=== PATIENT | female | born 1960 | race African-American/Black ===

== ENCOUNTER → 2017-01-28 | Outpatient (CLI) | payer OTHER ==
--- NOTE | 2017-01-28 17:26 | WOMENS IMAGING REPORT ---
EXAM DESCRIPTION: 3D DX MAMMO BILAT; U/S BREAST UNILATERAL, COMPL COMPLETED DATE/TIME: 01/28/2017 2:56 pm; 01/28/2017 2:03 pm REASON FOR STUDY: ROUTINE SCREENING; Z12.31; LUMP/PAIN L BREAST N63, N64.4 N63 UNSPECIFIED LUMP IN BREAST COMPARISON: Multiple mammograms since 2008 TECHNIQUE: Standard craniocaudal and mediolateral oblique views of each breast recorded using digita l acquisition. Additional "push-back" craniocaudal and mediolateral oblique images acquired. [facility] compression mammograms left breast implant displaced in the CC and MLO orientations, 90 left br east mediolateral view implant displaced, exaggerated craniocaudad view implant displaced. Left breast ultrasound was also performed. LIMITATIONS: None. FINDINGS: IMPLANTS: Bilateral subpectoral implants. RIGHT BREAST MASSES: No suspicious masses. CALCIFICATIONS: No new or suspicious calcifications. ARCHITECTURAL DISTORTION: None. DEVELOPING DENSITY: None. ASYMMETRY: None noted. OTHER: No other significant findings. LEFT BREAST MASSES: In the upper outer quadrant, 10 cm from the nipple a mammographic nodule is present with slig htly lobular borders measuring 10 to 11 mm in size. This correlates with the area of patient's palpa ble abnormality. There are 2 smaller adjacent nodules which are benign intramammary lymph nodes. CALCIFICATIONS: No new or suspicious calcifications. ARCHITECTURAL DISTORTION: None. DEVELOPING DENSITY: None. ASYMMETRY: None noted. OTHER: No other significant finding. Read with the assistance of CAD: .[facility] - R2 Cenova Version 1.3 .[facility] - R2 Cenova Version 1.3 .[facility] - R2 Cenova Version 2.4 .[facility] - R2 Cenova Version 2.4 .[facility] - R2 Case Management Associate Version 9.2 Left breast ultrasound: In the area of palpable abnormality indicated by the patient, an irregularly-shaped solid nodule with ill-defined borders is present, 10 x 10 x 10 mm in size. Internal color flow. This is suspicious f or malignancy. Ultrasound-guided core biopsy, post biopsy clip placement, and follow-up post biopsy mammogram recommended. There are 2 adjacent small benign-appearing intramammary lymph nodes, 6 mm and 5 mm in size. IMPRESSION: Palpable abnormality left breast correlates with a small solid nodule with internal colo r flow suspicious for malignancy. Ultrasound-guided core biopsy, post biopsy clip placement and post biopsy two-view mammogram recommended for followup. BREAST DENSITY: b. There are scattered areas of fibroglandular density. BIRAD: 4 Suspicious. Biopsy should be considered. RECOMMENDATION: RECOMMENDED FOLLOW UP: Left breast ultrasound-guided core biopsy, post biopsy clip p lacroger with follow-up two-view mammogram SPECIFIC INTERVENTION/IMAGING/CONSULTATION RECOMMENDED:As above COMMUNICATION:These findings were discussed with the patient, she understands she requires a biopsy. Report was also called to IFTIKHAR Soto, 1145 hours 01/28/2017 COMMENT: The patient has been notified of the results by letter per SA requirements. Additional no tification policies are in place for contacting patient with suspicious or incomplete findings. Quality ID #[id number]: The [employer] recommends an annual screening mammogram for women aged 40 years or over. This facility utilizes a reminder system to ensure that all patients receive reminder letters, and/or direct phone calls for appointments. This includes reminders for routine scr eening mammograms, diagnostic mammograms, or other Breast Imaging Interventions when appropriate. Th is patient will be placed in the appropriate reminder system. The [employer] (ACR) has developed recommendations for screening MRI of the breast s in certain patient populations, to be used in conjunction with mammography. Breast MRI surveillanc e may be appropriate for women with more than 20% lifetime risk of developing breast cancer as deter mined by genetic testing, significant family history of the disease, or history of mantle radiation f or Hodgkins Disease. ACR Practice Guidelines 2008. TECHNICAL DOCUMENTATION: FINDING NUMBER: (1) ASSESSMENT: (1) JOB ID: [id number] [employer]- All Rights Reserved
--- NOTE | 2017-01-28 17:26 | WOMENS IMAGING REPORT ---
EXAM DESCRIPTION: 3D DX MAMMO BILAT; U/S BREAST UNILATERAL, COMPL COMPLETED DATE/TIME: 01/28/2017 2:56 pm; 01/28/2017 2:03 pm REASON FOR STUDY: ROUTINE SCREENING; Z12.31; LUMP/PAIN L BREAST N63, N64.4 N63 UNSPECIFIED LUMP IN BREAST COMPARISON: Multiple mammograms since 2008 TECHNIQUE: Standard craniocaudal and mediolateral oblique views of each breast recorded using digita l acquisition. Additional "push-back" craniocaudal and mediolateral oblique images acquired. [facility] compression mammograms left breast implant displaced in the CC and MLO orientations, 90 left br east mediolateral view implant displaced, exaggerated craniocaudad view implant displaced. Left breast ultrasound was also performed. LIMITATIONS: None. FINDINGS: IMPLANTS: Bilateral subpectoral implants. RIGHT BREAST MASSES: No suspicious masses. CALCIFICATIONS: No new or suspicious calcifications. ARCHITECTURAL DISTORTION: None. DEVELOPING DENSITY: None. ASYMMETRY: None noted. OTHER: No other significant findings. LEFT BREAST MASSES: In the upper outer quadrant, 10 cm from the nipple a mammographic nodule is present with slig htly lobular borders measuring 10 to 11 mm in size. This correlates with the area of patient's palpa ble abnormality. There are 2 smaller adjacent nodules which are benign intramammary lymph nodes. CALCIFICATIONS: No new or suspicious calcifications. ARCHITECTURAL DISTORTION: None. DEVELOPING DENSITY: None. ASYMMETRY: None noted. OTHER: No other significant finding. Read with the assistance of CAD: .[facility] - R2 Cenova Version 1.3 .[facility] - R2 Cenova Version 1.3 .[facility] - R2 Cenova Version 2.4 .[facility] - R2 Cenova Version 2.4 .[facility] - R2 Automation Technician Version 9.2 Left breast ultrasound: In the area of palpable abnormality indicated by the patient, an irregularly-shaped solid nodule with ill-defined borders is present, 10 x 10 x 10 mm in size. Internal color flow. This is suspicious f or malignancy. Ultrasound-guided core biopsy, post biopsy clip placement, and follow-up post biopsy mammogram recommended. There are 2 adjacent small benign-appearing intramammary lymph nodes, 6 mm and 5 mm in size. IMPRESSION: Palpable abnormality left breast correlates with a small solid nodule with internal colo r flow suspicious for malignancy. Ultrasound-guided core biopsy, post biopsy clip placement and post biopsy two-view mammogram recommended for followup. BREAST DENSITY: b. There are scattered areas of fibroglandular density. BIRAD: 4 Suspicious. Biopsy should be considered. RECOMMENDATION: RECOMMENDED FOLLOW UP: Left breast ultrasound-guided core biopsy, post biopsy clip p lacroger with follow-up two-view mammogram SPECIFIC INTERVENTION/IMAGING/CONSULTATION RECOMMENDED:As above COMMUNICATION:These findings were discussed with the patient, she understands she requires a biopsy. Report was also called to IFTIKHAR Soto, 1145 hours 01/28/2017 COMMENT: The patient has been notified of the results by letter per SA requirements. Additional no tification policies are in place for contacting patient with suspicious or incomplete findings. Quality ID #[id number]: The [employer] recommends an annual screening mammogram for women aged 40 years or over. This facility utilizes a reminder system to ensure that all patients receive reminder letters, and/or direct phone calls for appointments. This includes reminders for routine scr eening mammograms, diagnostic mammograms, or other Breast Imaging Interventions when appropriate. Th is patient will be placed in the appropriate reminder system. The [employer] (ACR) has developed recommendations for screening MRI of the breast s in certain patient populations, to be used in conjunction with mammography. Breast MRI surveillanc e may be appropriate for women with more than 20% lifetime risk of developing breast cancer as deter mined by genetic testing, significant family history of the disease, or history of mantle radiation f or Hodgkins Disease. ACR Practice Guidelines 2008. TECHNICAL DOCUMENTATION: FINDING NUMBER: (1) ASSESSMENT: (1) JOB ID: [id number] [employer]- All Rights Reserved
== END ==
LOC: WI 09:56
PROVIDERS: ATTEND Nurse Practitioner Primary Care
DX: N63 Unspecified lump in breast (principal); N64.4 Mastodynia
CPT/HCPCS: 76641; G0279; G0204; 77062; 77066

== ENCOUNTER → 2017-02-12 | Day surgery (SDC) | payer OTHER ==
[~2017-02-12] MED LIST: LIDOCAINE 2% INJ (20 MG/ML) 20 ML MDV ONE
--- NOTE | 2017-02-18 16:20 | WOMENS IMAGING REPORT ---
EXAM DESCRIPTION: U/S BREAST BX; LEFT DIG DX MAMMO NO CHG COMPLETED DATE/TIME: 02/12/2017 2:12 pm; 02/12/2017 3:17 pm REASON FOR STUDY: L BREAST- LUMP; N63; N63 S/P US LEFT BREAST BX FOR CLIP PLACEMENT N63 UNSPECIFIED LUMP IN BREAST N64.4 MASTODYNIA COMPARISON: None. TECHNIQUE: The procedure was discussed with the patient and the patient agreed to proceed. The patient was scanned and the area of interest in the 1 o'clock position of the left breast was loc alized. This correlates with the area of concern on prior imaging studies. This area was targeted fo r ultrasound-guided core biopsy. After sterile skin prep and 5 mL local lidocaine 1% for skin and deep tissue anesthesia, a 14 gauge c ore biopsy needle was used to obtain several cores of tissue from the lesion. Under ultrasound xochilt nce, a ribbon clip was placed in the areas sampled. There were no immediate post-procedure complicat ions. MAMMOGRAM: Post-procedure two view mammogram was acquired in the digital mammogram suite. The clip wa s in the expected location. No significant hematoma. Pathology yields a diagnosis of invasive ductal carcinoma. Pathology is concordant. LIMITATIONS: None. FINDINGS: Ultrasound guided breast biopsy as described above. POST PROCEDURE MAMMOGRAMS FOR MARKER PLACEMENT: Yes IMPRESSION: ULTRASOUND-GUIDED CORE BIOPSY OF THE LEFT BREAST YIELDS A DIAGNOSIS OF INVASIVE DUCTAL C ARCINOMA. COMMENT: COMMUNICATION: The patient's provider has been notified of the findings. The provider will discuss the findings with the patient. Patient medication list reviewed: Yes- Quality ID# [id number]:Eligible professional attests to documenting i n the medical record they obtained, updated, or reviewed the patient's current medications. TECHNICAL DOCUMENTATION: JOB ID: [id number] [employer]- All Rights Reserved
== END ==
LOC: WI 14:37
PROVIDERS: ATTEND Nurse Practitioner Primary Care
PROC: 0HBU3ZX Excision of Left Breast, Percutaneous Approach, Diagnostic (ICD-10-PCS; principal; 2017-02-12)
DX: C50.912 Malignant neoplasm of unspecified site of left female breast (principal); N64.4 Mastodynia
CPT/HCPCS: 88342 ×2; 88305 ×2; 19083; J3490

== ENCOUNTER 2017-02-17 09:47 | Day surgery (SDC) | payer OTHER ==
--- NOTE | 2017-02-13 12:12 | EKG REPORT ---
SEVERITY:- BORDERLINE ECG - SINUS BRADYCARDIA BORDERLINE T WAVE ABNORMALITIES : Confirmed by: Kathy Caldwell MD 13-Feb-2017 12:11:11
--- NOTE | 2017-02-16 14:59 | HISTORY AND PHYSICAL E ---
History and Physical NAME: STEPHANIE PAGE : 1960 AGE: 56Y ADMITTED: 02/17/2017 ROOM: HISTORY OF PRESENT ILLNESS: Patient is known to me. I did colon 2009. She does have history of colitis. Her colon shows rectal polyps and hemorrhoids. Conclusion, she does have tortuous difficult colonoscopy. Her primary is Dr. Hanna Valdez. I saw her in 2009. She did have flex upper sig, ulcerative colitis involving the rectosigmoid colon. She did have upper scope in 2010. It shows gastritis. Another colon in 2010 showing external hemorrhoids and colitis. The patient was done with Versed/fentanyl combination. The patient did have history of ulcerative colitis, redundant colon. There was no evidence of polyps. The patient presented at this time for followup colonoscopy. We did colon in 2013 and she did have biopsy showing ulcerative colitis. The patient presented at this time regarding her colonoscopy. PHYSICAL EXAMINATION: GENERAL: Pleasant, alert, oriented, in no acute distress. VITAL SIGNS: Blood pressure is 120/80, pulse 80, respirations 18, temp is 98. HEAD, EYES, EARS, NOSE, THROAT: Normal. NECK: Supple. LUNGS: Clear. ABDOMEN: Soft. NEUROLOGIC EXAM: Negative. CONCLUSION: History of ulcerative colitis . PLAN: Colonoscopy to be done in the OR on February 17. Patient did have colonoscopy 2015. Another vitals: Blood pressure 120/80, pulse 80, respirations 18, temp is 98. Difficult colonoscopy. It was done in the OR. This was successful with deep sedation colon screening. The patient did have colonoscopy in the OR. 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 DICTATING PHYSICIAN: HIMANSHU VENCES M.D. [id number] PHY#: [id number] ID: [id number] JOB#: [id number] ACCT: [id number] cc:HANNA VALDEZ M.D. HIMANSHU VENCES M.D. >
[~2017-02-17 09:47] MED LIST changes: +GLUCAGON,HUMAN RECOMB 1 MG INJ ONE; +LACTATED RINGERS 1000 ML IV PRN; +LIDOCAINE 0.5% INJ-PF (5 MG/ML) 50 ML SDV SUBCUT PRN; -LIDOCAINE 2% INJ (20 MG/ML) 20 ML MDV ONE; +LIDOCAINE 2% JELLY 30 ML TUBE ONE
[2017-02-17] MEDS ORDERED: MIDAZOLAM 2 MG/2 ML INJ ONE (10:33)
[2017-02-17] MEDS ORDERED: PROPOFOL INJ 200 MG/20 ML VIAL IV ONE (10:33)
[2017-02-17] MEDS ORDERED: OXYCODONE-ACETAMINOPHEN 5-325 MG TABLET PO PRN ×2 (11:46)
[2017-02-17] MEDS ORDERED: PROMETHAZINE HCL INJ 25 MG/1 ML VIAL IV PRN ×3 (11:46→12:28)
[2017-02-17] MEDS ORDERED: DIPHENHYDRAMINE HCL 50 MG/ML VIAL IV PRN (11:46)
[2017-02-17] MEDS ORDERED: MEPERIDINE HCL/PF INJ 25 MG/1 ML DISP.SYRIN IV PRN (11:46)
[2017-02-17] MEDS ORDERED: MORPHINE SULFATE 10 MG/ML INJ IV PRN (11:46)
[2017-02-17] MEDS ORDERED: FENTANYL CITRATE INJ/PF 100 MCG/2 ML AMPUL IV PRN ×3 (11:46)
[2017-02-17] MEDS ORDERED: LIDOCAINE 2% VISCOUS SOLN 20 ML UDCUP PO PRN (12:27)
[2017-02-17] MEDS ORDERED: ACETAMINOPHEN 325 MG TABLET PO PRN (12:27)
[2017-02-17] MEDS ORDERED: SIMETHICONE 80 MG TAB.CHEW PO PRN (12:28)
[2017-02-17 13:06] LABS: HEMATOCRIT 39.4 % (36.0-47.0); HEMOGLOBIN 13.5 g/dL (12.0-15.5); HGB HCT DIFFERENCE 1.1; MEAN CORPUSCULAR HEMOGLOBIN 31.8 pg (27.0-33.4); MEAN CORPUSCULAR HGB CONC 34.3 g/dL (32.0-36.0); MEAN CORPUSCULAR VOLUME 93 fl (80-97); RED BLOOD COUNT 4.26 10^6/uL (3.72-5.28); RED CELL DISTRIBUTION WIDTH 12.8 % (11.5-14.0); WHITE BLOOD COUNT 5.6 10^3/uL (4.0-10.5)
[2017-02-17 13:26] VITALS: BP 146/85
[2017-02-17 13:28] LABS: ALANINE AMINOTRANSFERASE 48 U/L (9-52); ALBUMIN 4.2 g/dL (3.5-5.0); ALKALINE PHOSPHATASE 76 U/L (38-126); ANION GAP 11 (5-19); ASPARTATE AMINO TRANSFERASE 51 U/L (14-36); BILIRUBIN,DIRECT 0.4 mg/dL (0.0-0.4); BILIRUBIN,TOTAL 0.9 mg/dL (0.2-1.3); BLOOD UREA NITROGEN 12 mg/dL (7-20); C-REACTIVE PROTEIN 5.6 mg/L (<10.0); CALCIUM 9.4 mg/dL (8.4-10.2); CARBON DIOXIDE 23 mmol/L (22-30); CHLORIDE 107 mmol/L (98-107); CREATININE RESULT 0.87 mg/dL (0.52-1.25); GLUCOSE 91 mg/dL (75-110); POTASSIUM 4.2 mmol/L (3.6-5.0); SODIUM 141.4 mmol/L (137-145); TOTAL PROTEIN 7.3 g/dL (6.3-8.2)
[2017-02-17 13:43] LABS: ERYTHROCYTE SEDIMENTATION RATE 14 mm/hr (0-30)
[2017-02-17 13:55] LABS: CARCINOEMBRYONIC ANTIGEN 6.1 ng/mL (<3.0)
--- NOTE | 2017-02-17 18:55 | OPERATIVE REPORT E ---
Operative Report NAME: STEPHANIE PAGE : 1960 AGE: 56Y DATE OF SURGERY: 02/17/2017 ROOM: PREOPERATIVE DIAGNOSIS: Ulcerative colitis. POSTOPERATIVE DIAGNOSIS: Ulcerative colitis involving the rectosigmoid colon. PROCEDURE: Colonoscopy. SURGEON: HIMANSHU VENCES M.D. ANESTHESIA: Done in the OR with anesthesia standby. TISSUE REMOVED OR ALTERED: Biopsy of rectal area. FINDINGS: The patient has very redundant colon, very high splenic, inverted V-type transverse colon. Difficult colonoscopy. DESCRIPTION OF PROCEDURE: Rectal exam shows proctitis, sigmoid colitis. Descending colon normal. Splenic curve is very high in the left upper quadrant. Transverse colon inverted V normal. Cecum normal. Ascending colon normal. Transverse colon normal. Descending colon normal. Rectosigmoid involvement of the ulcerative colitis. Rectum normal. CONCLUSIONS: Nonspecific colitis, most likely ulcerative colitis involving the rectosigmoid colon. No evidence of polyps. No evidence of malignancy. The patient tolerated the procedure well and was discharged to her room in stable condition. DICTATING PHYSICIAN: HIMANSHU VENCES M.D. [id number] PHY#: [id number] ID: [id number] JOB#: [id number] ACCT: [id number] cc:HIMANSHU VENCES M.D. >
--- NOTE | 2017-02-17 18:56 | DISCHARGE SUMMARY E ---
Discharge Summary NAME: STEPHANIE PAGE : 1960 AGE: 56Y ADMITTED: 02/17/2017 DISCHARGED: 02/17/2017 HOSPITAL COURSE: The patient is a 56-year-old female, underwent colonoscopy in the OR with Anesthesia standby. This was successful to the cecum. The patient has redundant colon. There was no polyps, no malignancy. She has involvement of rectosigmoid colon. DISCHARGE PLAN: 1. Awaiting biopsy results. 2. Lab studies. 3. Full liquid. Advance to soft, low residue. 4. Patient to see us in the office in the next few days. DICTATING PHYSICIAN: HIMANSHU VENCES M.D. [id number] PHY#: [id number] ID: [id number] JOB#: [id number] ACCT: [id number] cc:HIMANSHU VENCES M.D. >
== END 2017-02-17 13:35 | disposition home or self-care (01) ==
LOC: OROUT 09:47
PROVIDERS: ATTEND Specialist
PROC: 0DBP8ZX Excision of Rectum, Via Natural or Artificial Opening Endoscopic, Diagnostic (ICD-10-PCS; principal; 2017-02-17 11:30)
DX: K51.80 Other ulcerative colitis without complications (principal); K62.89 Other specified diseases of anus and rectum; I10 Essential (primary) hypertension; Z88.2 Allergy status to sulfonamides; Z79.899 Other long term (current) drug therapy
CPT/HCPCS: 45380; 86256; 93005; 36415; 82378; 84132; 85027; 85652; 86140; 80053; 88342 ×2; 88341 ×2; 88305 ×2; 93010; J2250; J1610; J2704; 810

== ENCOUNTER → 2017-04-28 | Outpatient (CLI) | payer OTHER ==
--- NOTE | 2017-04-28 17:10 | RADIOLOGY REPORT (SQ) ---
EXAM DESCRIPTION: NM MUGA REST COMPLETED DATE/TIME: 04/28/2017 2:36 pm REASON FOR STUDY: BREAST CA C50.412 MALIG NEOPLASM OF UPPER-OUTER QUADRANT OF LEFT FEMAL Z13.6 ENC OUNTER FOR SCREENING FOR CARDIOVASCULAR DISORDERS Z08 ENCNTR FOR FOLLOW-UP EXAM AFTER TRTMT FOR WILFREDO LAMA NEONitish COMPARISON: None. RADIONUCLIDE AND DOSE: 24.3 mCi technetium 99 M pertechnetate The route of agent administration: Intravenous TECHNIQUE: Following administration of the radionuclide, gated images of the heart are obtained in t hree projections. Left ventricular functional analysis performed. LIMITATIONS: None. FINDINGS: LEFT VENTRICULAR FUNCTION: EJECTION FRACTION: 68%. END-DIASTOLIC VOLUME: 174 mL. END-SYSTOLIC VOLUME: 39 mL. WALL MOTION: No focal wall motion abnormalities. OTHER: No other significant finding. IMPRESSION: NORMAL CARDIAC MUGA STUDY. NORMAL LEFT VENTRICULAR FUNCTION, 68%. TECHNICAL DOCUMENTATION: JOB ID: [id number] [employer]- All Rights Reserved
== END ==
LOC: RAD 13:22
PROVIDERS: ATTEND Internal Medicine
DX: Z13.6 Encounter for screening for cardiovascular disorders (principal); Z08 Encounter for follow-up examination after completed treatment for malignant neoplasm; C50.412 Malignant neoplasm of upper-outer quadrant of left female breast
CPT/HCPCS: 78472; A9560; Q9969

== ENCOUNTER → 2018-01-07 | Outpatient (CLI) | payer OTHER ==
--- NOTE | 2018-01-08 18:28 | WOMENS IMAGING REPORT ---
EXAM DESCRIPTION: U/S BREAST UNILAT LIMITED COMPLETED DATE/TIME: 01/07/2018 2:07 pm REASON FOR STUDY: LOCALIZED SWELLING; R922.2 R22.2 LOCALIZED SWELLING, MASS AND LUMP, TRUNK COMPARISON: None. TECHNIQUE: Real-time and static grayscale imaging performed of the left axilla targeted to the area of clinical concern. Patient had a left lumpectomy with axillary node sampling 1 year ago. She pres ents today with a palpable abnormality in the left axilla. Selected color Doppler images recorded. LIMITATIONS: None. FINDINGS: Patient indicates a palpable nodule in the left axilla. Ultrasound demonstrates a lymph n ode in the area of clinical concern, 2.7 x 1.7 by 2.8 cm in size. Cortical thickness of the lymph no de is 8 mm. This is worrisome for a malignant lymph node given history of left breast cancer, and ul trasound-guided core biopsy with post biopsy clip placement is recommended. IMPRESSION: Enlarged lymph node with abnormal cortical thickening left axilla, worrisome for maligna ncy. Ultrasound-guided core biopsy with post biopsy clip placement is recommended BIRAD: 5 Highly suggestive of malignancy. Appropriate action should be taken. RECOMMENDATION: RECOMMENDED FOLLOW-UP: Left axillary lymph node ultrasound-guided core biopsy with p ost biopsy clip placement. COMMENT: The [employer] (ACR) has developed recommendations for screening MRI of the breasts in certain patient populations, to be used in conjunction with mammography. Breast MRI s urveillance may be appropriate for women with more than 20% lifetime risk of developing breast cancer as determined by genetic testing, significant family history of the disease, or history of mantle r adiation for Hodgkins Disease. ACR Practice Guidelines 2008. TECHNICAL DOCUMENTATION: JOB ID: [id number] [employer]- All Rights Reserved Reading location - IP/workstation name: [facility]
== END ==
LOC: WI 13:37
PROVIDERS: ATTEND Surgery
DX: C50.012 Malignant neoplasm of nipple and areola, left female breast (principal); R22.2 Localized swelling, mass and lump, trunk
CPT/HCPCS: 76642

== ENCOUNTER → 2018-09-20 | Outpatient (CLI) | payer OTHER ==
--- NOTE | 2018-09-20 10:19 | WOMENS IMAGING REPORT ---
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 TECHNIQUE: Real-time and static grayscale imaging performed of the left breast targeted to the area of clinical/mammographic concern. Selected color Doppler images recorded. LIMITATIONS: None. FINDINGS: MASS: No mass identified. Implant partially visualized. OTHER: No axillary adenopathy. IMPRESSION: No suspicious findings detected by ultrasound. BIRAD: Negative. RECOMMENDATION: RECOMMENDED FOLLOW-UP: Follow-up as clinically indicated. COMMENT: The [employer] (ACR) has developed recommendations for screening MRI of the breasts in certain patient populations, to be used in conjunction with mammography. Breast MRI s urveillance may be appropriate for women with more than 20% lifetime risk of developing breast cancer as determined by genetic testing, significant family history of the disease, or history of mantle r adiation for Hodgkins Disease. ACR Practice Guidelines 2008. TECHNICAL DOCUMENTATION: JOB ID: [id number] [employer]- All Rights Reserved Reading location - IP/workstation name: [email or web address]
== END ==
LOC: WI 07:26
PROVIDERS: ATTEND Surgery
DX: C50.012 Malignant neoplasm of nipple and areola, left female breast (principal)
CPT/HCPCS: 76642

== ENCOUNTER 2019-05-27 08:05 | Day surgery (SDC) | payer OTHER ==
[~2019-05-27 08:05] MED LIST changes: -GLUCAGON,HUMAN RECOMB 1 MG INJ ONE; -LACTATED RINGERS 1000 ML IV PRN; -LIDOCAINE 0.5% INJ-PF (5 MG/ML) 50 ML SDV SUBCUT PRN; -LIDOCAINE 2% JELLY 30 ML TUBE ONE; +PROPOFOL INJ 200 MG/20 ML VIAL IV ONE
[2019-05-27] MEDS ORDERED: PROPOFOL INJ 200 MG/20 ML VIAL IV ONE (09:13)
[2019-05-27 09:40] VITALS: BP 102/81
--- NOTE | 2019-05-27 12:05 | Operative Report ---
Operative Report DATE OF SURGERY: 05/27/19 Operative Report: The risks, benefits and alternatives of the procedure including the risk of bleeding, perforation requiring surgery have been explained to the patient in detail and informed consent has been obtained. The patient is placed in a left, lateral decubital position. Timeout was called. Propofol medication is administered. Rectal examination is done which did not reveal any masses, tears or fissures. An Olympus videoscope was introduced into the patient's rectum. Scope was then carefully advanced all the way to the cecum. Cecum was identified by the usual anatomical landmarks of the ileocecal valve as well as the appendiceal office. Photodocumentation is obtained. Scope was then sequentially pulled back via the various segments of the colon including the ascending colon, hepatic flexure, transverse colon, splenic flexure, descending colon finding to the rectosigmoid portions of the colon. Retroflexion maneuver is performed. PREOPERATIVE DIAGNOSIS: Possible inflammatory bowel disease/ulcerative colitis POSTOPERATIVE DIAGNOSIS: No evidence of colitis noted. Random biopsies obtained to rule out for microscopic colitis. Transverse colon polyp removed via snare polypectomy and retrieved. It is a sessile polyp. Internal hemorrhoids OPERATION: Colonoscopy with snare polypectomy. Colonoscopy with biopsy SURGEON: AIRAM JONES ANESTHESIA: LMAC TISSUE REMOVED OR ALTERED: As noted above. COMPLICATIONS: None. ESTIMATED BLOOD LOSS: None. INTRAOPERATIVE FINDINGS: As noted above. PROCEDURE: Patient tolerated the procedure well. No immediate postprocedure complications are noted. Patient is discharged in good condition. Discharge date 05/27/2019. Discharge diet: Regular. Discharge activity: Regular. 2 to 3-week follow-up to discuss findings. Patient is instructed to call the office or proceed to the emergency room should there be any further questions. Wait on the pathology. 5-year surveillance colonoscopy.
== END 2019-05-27 09:45 | disposition home or self-care (01) ==
LOC: END 08:05
PROVIDERS: ATTEND Internal Medicine Gastroenterology
DX: K52.9 Noninfective gastroenteritis and colitis, unspecified (principal); Z79.899 Other long term (current) drug therapy; D12.3 Benign neoplasm of transverse colon; K64.8 Other hemorrhoids; I10 Essential (primary) hypertension
CPT/HCPCS: 45380; 45385; 88305 ×2; 00811; J2704; 811

== ENCOUNTER → 2020-04-02 | Outpatient (CLI) | payer OTHER ==
--- NOTE | 2020-04-03 14:14 | WOMENS IMAGING REPORT ---
EXAM DESCRIPTION: U/S BREAST UNILAT LIMITED IMAGES COMPLETED DATE/TIME: 04/02/2020 1:47 pm REASON FOR STUDY: Z85.3 PERSONAL HISTORY OF MALIGNANT NEOPLASM OF BREAST Z85.3 PERSONAL HISTORY OF MALIGNANT NEOPLASM OF BREAST COMPARISON: 09/20/2018 TECHNIQUE: Real-time and static grayscale imaging performed of the left axilla targeted to the area of clinical/mammographic concern. Selected color Doppler images recorded. LIMITATIONS: None. FINDINGS: MASS: Since the previous ultrasound examination dated 09/20/2018, surgical removal of a lef t axillary lymph node. No mass identified on the current examination. OTHER: The axillary vessels are patent. IMPRESSION: 1. Post surgical changes since the previous examination dated 09/20/2018. 2. No suspicious findings detected by ultrasound. BIRAD: 2 Benign findings. RECOMMENDATION: 1. Clinical correlation and patient advised to follow-up with her provider. COMMENT: The [employer] (ACR) has developed recommendations for screening MRI of the breasts in certain patient populations, to be used in conjunction with mammography. Breast MRI s urveillance may be appropriate for women with more than 20% lifetime risk of developing breast cancer as determined by genetic testing, significant family history of the disease, or history of mantle r adiation for Hodgkins Disease. ACR Practice Guidelines 2008. TECHNICAL DOCUMENTATION: JOB ID: [id number] [employer]- All Rights Reserved Reading location - IP/workstation name: [email or web address]
== END ==
LOC: WI 13:10
PROVIDERS: ATTEND Surgery
DX: Z08 Encounter for follow-up examination after completed treatment for malignant neoplasm (principal); Z85.3 Personal history of malignant neoplasm of breast
CPT/HCPCS: 76642